=== PATIENT | male | born 1945 | race Caucasian/White ===

== ENCOUNTER → 2017-06-08 | Outpatient (CLI) | payer BC | LOC: BMCIMAGING 07:17 | PROVIDERS: ATTEND Family Medicine | DX: K76.89 Other specified diseases of liver (principal); N20.0 Calculus of kidney; I70.0 Atherosclerosis of aorta ==

== ENCOUNTER 2018-06-26 11:10 | Emergency (ER) | payer BC, OTHER ==
[2018-06-26 11:18] VITALS: BP 128/58
--- NOTE | 2018-06-26 11:45 | EDPHY ---
H & P Time Seen by Provider: 06/26/18 11:45 HPI/ROS: Chief complaint. Coughing up blood HPI. Patient is 72-year-old male developed URI symptoms 4-5 days ago. Decreased energy. No real fever. He has had a cough. Yesterday morning he noticed that he seemed to have nasal drainage and then when he coughed or Blue is nose hard there were streaks of blood. No chest pain or shortness of breath. He describes dark red blood mixed with mucus. His breathing passages feel congested. No abdominal pain. No unusual leg pain or swelling ROS 10 systems were reviewed and negative with the exception of the elements mentioned in the history of present illness Past Medical/Surgical History: Dyslipidemia, arrhythmia with ablation Social History: , nonsmoker, no alcohol Smoking Status: Never smoked Physical Exam: General Appearance: Alert well-developed male mild distress vital signs are stable Eyes: Pupils equal and round no pallor or injection. ENT, tympanic membranes are normal. Nasal exam shows no evidence of bleeding. No septal hematoma. Pharynx is normal Respiratory: There are no retractions, lungs are clear to auscultation. Cardiovascular: Regular rate and rhythm. Gastrointestinal: Abdomen is soft and nontender, no masses, bowel sounds normal. Neurological: Awake and alert, sensory and motor exams grossly normal. Skin: Warm and dry, no rashes. Musculoskeletal: Neck is supple nontender. Extremities symmetrical, full range of motion. Psychiatric: Patient is oriented X 3, there is no agitation. Constitutional: Initial Vital Signs Temperature (C) 36.5 C 06/26/18 11:14 Heart Rate 56 L 06/26/18 11:14 Respiratory Rate 18 06/26/18 11:14 Blood Pressure 128/58 H 06/26/18 11:14 O2 Sat (%) 97 06/26/18 11:14 O2 Delivery Mode Room Air Allergies/Adverse Reactions: No Known Allergies Allergy (Verified 01/13/16 13:31) Home Medications: Medication Instructions Recorded Atorvastatin Calcium [Lipitor 20 20 mg PO DAILY 01/13/16 mg (*)] Tadalafil [Cialis] 20 mg PO PRN PRN 01/13/16 Medical Decision Making - Diagnostics Imaging Results: Chest x-ray interpreted by me consistent with bronchitis. No pneumonia or mass Procedures: IV normal saline ED Course/Re-evaluation: Laboratory evaluation is normal. Patient and I discussed imaging and lab results. We discussed treatment plan including criteria for return importance of follow-up and further evaluation. He expresses understanding and agrees - Data Points Laboratory Results: Laboratory Results 06/26/18 11:55 06/26/18 11:55 06/26/18 06/26/18 06/26/18 12:16 11:55 11:55 WBC RBC Hgb Hct MCV MCH MCHC RDW Plt Count MPV Neut % (Auto) Lymph % (Auto) Hood % (Auto) Eos % (Auto) Baso % (Auto) Nucleat RBC Rel Count Absolute Neuts (auto) Absolute Lymphs (auto) Absolute Monos (auto) Absolute Eos (auto) Absolute Basos (auto) Absolute Nucleated RBC Immature Gran % Immature Gran # PT 14.0 SEC SEC (12.0-15.0) INR 1.12 (0.83-1.16) APTT 30.1 SEC SEC (23.0-38.0) Sodium 137 mEq/L mEq/L (135-145) Potassium 4.3 mEq/L mEq/L (3.5-5.2) Chloride 103 mEq/L mEq/L (97-110) Carbon Dioxide 27 mEq/l mEq/l (22-31) Anion Gap 7 mEq/L mEq/L (6-14) BUN 18 mg/dL mg/dL (7-23) Creatinine 0.8 mg/dL mg/dL (0.7-1.3) Estimated GFR > 60 Glucose 84 mg/dL mg/dL (70-100) Calcium 9.0 mg/dL mg/dL (8.5-10.4) POC Troponin I 0.00 ng/mL ng/mL (0.00-0.08) 06/26/18 11:55 WBC 8.63 10^3/uL 10^3/uL (3.80-9.50) RBC 4.86 10^6/uL 10^6/uL (4.40-6.38) Hgb 15.2 g/dL g/dL (13.7-17.5) Hct 45.3 % % (40.0-51.0) MCV 93.2 fL fL (81.5-99.8) MCH 31.3 pg pg (27.9-34.1) MCHC 33.6 g/dL g/dL (32.4-36.7) RDW 11.8 % % (11.5-15.2) Plt Count 170 10^3/uL 10^3/uL (150-400) MPV 10.5 fL fL (8.7-11.7) Neut % (Auto) 69.2 % % (39.3-74.2) Lymph % (Auto) 18.1 % % (15.0-45.0) Hood % (Auto) 11.0 % % (4.5-13.0) Eos % (Auto) 0.7 % % (0.6-7.6) Baso % (Auto) 0.5 % % (0.3-1.7) Nucleat RBC Rel Count 0.0 % % (0.0-0.2) Absolute Neuts (auto) 5.98 10^3/uL 10^3/uL (1.70-6.50) Absolute Lymphs (auto) 1.56 10^3/uL 10^3/uL (1.00-3.00) Absolute Monos (auto) 0.95 10^3/uL H 10^3/uL (0.30-0.80) Absolute Eos (auto) 0.06 10^3/uL 10^3/uL (0.03-0.40) Absolute Basos (auto) 0.04 10^3/uL 10^3/uL (0.02-0.10) Absolute Nucleated RBC 0.00 10^3/uL 10^3/uL (0-0.01) Immature Gran % 0.5 % % (0.0-1.1) Immature Gran # 0.04 10^3/uL 10^3/uL (0.00-0.10) PT INR APTT Sodium Potassium Chloride Carbon Dioxide Anion Gap BUN Creatinine Estimated GFR Glucose Calcium POC Troponin I Point of Care Test Results: Chemistry 06/26/18 12:16 POC Troponin I 0.00 ng/mL ng/mL (0.00-0.08) Departure - Departure Disposition: Home, Routine, Self-Care Clinical Impression: Hemoptysis Acute bronchitis Qualifiers: Bronchitis organism: unspecified organism Qualified Code(s): J20.9 - Acute bronchitis, unspecified Condition: Good Instructions: Acute Bronchitis (ED) Additional Instructions: If you have vaporizer humidifier that can help thin secretions and promote drainage return for worsening coughing, trouble breathing, bleeding Follow-up with pulmonology for continuing symptoms Referrals: LUIS GRAHAM [Primary Care Provider] - As per Instructions Santos Paredes MD [Medical Doctor] - 3-4 days, if not improved
[2018-06-26 12:23] LABS: PLATELET COUNT 170 10^3/uL (150-400)
[2018-06-26 12:43] LABS: INR 1.12 (0.83-1.16)
== END 2018-06-26 13:46 | disposition home or self-care (01) ==
DX: J20.9 Acute bronchitis, unspecified (principal); R04.2 Hemoptysis
CPT/HCPCS: 84484-ER